=== PATIENT | female | born 1955 | race Caucasian/White ===

== ENCOUNTER → 2017-03-07 | Outpatient (CLI) | payer BC ==
--- NOTE | 2017-03-07 16:19 | CT ---
EXAMINATION TYPE: CT sinus wo con DATE OF EXAM: 03/07/2017 4:13 PM COMPARISON: NONE HISTORY: sinus headaches and congestion CT DLP: 622.3 mGycm CONTRAST: 0 mL of Omnipaque 300 The paranasal sinuses are examined in the axial plane at 2 mm thick sections. Reconstructed images i n the coronal plane were obtained. There is dental amalgam scatter artifact The maxillary sinuses are clear. The ethmoid air cells are clear. The sphenoid sinuses are clear. The frontal sinuses are clear. The septum is evaluated. There is septal deviation to the left. The ostiomeatal units are patent. IMPRESSIONS: 1. Normal paranasal sinus study
== END | disposition home or self-care (01) ==
LOC: RADCTMAIN 15:41
PROVIDERS: ATTEND Otolaryngology
DX: J32.9 Chronic sinusitis, unspecified (principal)
CPT/HCPCS: 70486

== ENCOUNTER → 2018-10-13 | Outpatient (CLI) | payer BC ==
--- NOTE | 2018-10-18 14:42 | P.ARTDOP ---
Arterial Doppler LOWER EXTREMITY ARTERIAL DOPPLER: DATE OF SERVICE: 10/13/2018 Reason for study: Leg cramping. Doppler waveforms: Multiphasic bilaterally throughout. Pulse volume recording: Normal configuration. Pressure gradients: None. Ankle-brachial indices: Greater than 1 bilaterally. Toe pressures: [] on the right, [] on the left Impression: Normal study.
== END ==
LOC: RADUSWWP 14:10
PROVIDERS: ATTEND Family Medicine
DX: I73.9 Peripheral vascular disease, unspecified (principal)
CPT/HCPCS: 93923

== ENCOUNTER → 2019-04-06 | Outpatient (CLI) | payer OTHER ==
--- NOTE | 2019-04-06 12:34 | XR ---
EXAM TYPE: LUMBAR SPINE X RAY SERIES COMPARISON: NONE HISTORY: Pain TECHNIQUE: 4 views are submitted. FINDINGS: Alignment is anatomic. The pedicles are intact. The transverse processes are intact. There is mult ilevel mild degenerative disc disease with advanced facet arthropathy L4-5 and L5-S1. Moderate degene rative disc disease L4-5 and severe changes L5-S1. Grade 1 anterolisthesis L4 on L5. IMPRESSION: 1. Multilevel degenerative disc disease with most marked findings at L4-5 and L5-S1. Grade 1 anteroli sthesis L4 on L5.
== END ==
LOC: RADXRMAIN 12:12
PROVIDERS: ATTEND Emergency Medicine
DX: M43.16 Spondylolisthesis, lumbar region (principal); M51.36 Other intervertebral disc degeneration, lumbar region; M51.37 Other intervertebral disc degeneration, lumbosacral region
CPT/HCPCS: 72100

== ENCOUNTER → 2020-08-13 | Outpatient (CLI) | payer BC ==
--- NOTE | 2020-08-14 13:37 | BD ---
EXAMINATION TYPE: Axial Bone Density DATE OF EXAM: 08/13/2020 COMPARISON: NONE CLINICAL HISTORY: Height: 5 FT 3 IN Weight: 137 FRAX RISK QUESTIONS: Alcohol (3 or more units per day): NO Family History (Parent hip fracture): NO Glucocorticoids (More than 3mos): NO (Ex: prednisone, prednisolone, methylprednisolone, dexamethasone, and hydrocortisone). History of Fracture in Adulthood: NO Secondary Osteoporosis: 1. Type 1 Diabetes: NO 2. Hyperthyroidism: NO 3. Menopause before 45: NO 4. Malnutrition: NO 5. Chronic liver disease: NO Rheumatoid Arthritis: NO Current Tobacco Use: NO RISK FACTORS HISTORY OF: Family History of Osteoporosis: YES Active: SOMEWHAT Postmenopausal woman: AGE 48 MEDICATIONS: Additional Medications: ATTENOLOL, CYMBICORT,SINGULAIR ,PAIN MEDS Additional History: EXAM MEASUREMENTS: Bone mineral densitometry was performed using the [employer] System. Bone mineral density as measured about the Lumbar spine is: ----- L1-L4(G/cm2): 1.179 T Score Values are as follows: ----- L2: 0.0 ----- L3: -0.4 ----- L4: 0.3 ----- L1-L4: 0.0 BASELINE Bone mineral density about the R hip (g/cm2): 0.871 Bone mineral density about the L hip (g/cm2): 0.829 T Score values are as follows: -----R Neck: -1.2 -----L Neck: -1.5 -----R Total: -0.7 -----L Total: -1.2 BASELINE IMPRESSION: Osteopenia of the left proximal femur. NOTE: T-SCORE=SD OF THE YOUNG ADULT MEAN.
--- NOTE | 2020-08-14 14:47 | MM ---
Reason for exam: screening (asymptomatic). Last mammogram was performed 2 years and 9 months ago. History: Patient is postmenopausal. Family history of breast cancer in mother at age 50. Benign cyst aspiration of the left breast. 2 benign cyst aspirations of the right breast. Benign excisional biopsy of the left breast. Physical Findings: A clinical breast exam by your physician is recommended on an annual basis and results should be correlated with mammographic findings. MG 3D Screening Mammo W/Cad Bilateral CC and MLO view(s) were taken. Prior study comparison: November 07, 2017, bilateral MG screening mammo w CAD. July 07, 2016, bilateral MG screening mammo w CAD. The breast tissue is extremely dense which could obscure a lesion on mammography. Stable benign calcifications. There is no discrete abnormality. No significant changes when compared with prior studies. ASSESSMENT: Benign, BI-RAD 2 RECOMMENDATION: Routine screening mammogram of both breasts in 1 year.
== END | disposition home or self-care (01) ==
LOC: RADMAMWWP 15:10
PROVIDERS: ATTEND Family Medicine
DX: Z12.31 Encounter for screening mammogram for malignant neoplasm of breast (principal); M85.852 Other specified disorders of bone density and structure, left thigh; Z80.3 Family history of malignant neoplasm of breast
CPT/HCPCS: 77063; 77067; 77080

== ENCOUNTER → 2021-12-22 | Outpatient (CLI) | payer BC ==
--- NOTE | 2021-12-23 10:01 | MM ---
Reason for exam: screening (asymptomatic). Last mammogram was performed 1 year and 4 months ago. History: Patient is postmenopausal. Family history of breast cancer in mother at age 50. Benign cyst aspiration of the left breast. 2 benign cyst aspirations of the right breast. Benign excisional biopsy of the left breast. Physical Findings: A clinical breast exam by your physician is recommended on an annual basis and results should be correlated with mammographic findings. MG 3D Screening Mammo W/Cad Bilateral CC and MLO view(s) were taken. Prior study comparison: August 13, 2020, bilateral MG 3d screening mammo w/cad. November 07, 2017, bilateral MG screening mammo w CAD. The breast tissue is heterogeneously dense. This may lower the sensitivity of mammography. Nodular density upper outer right breast. This finding is changed when compared with previous exams. ASSESSMENT: Incomplete: need additional imaging evaluation, BI-RAD 0 RECOMMENDATION: Special view mammogram and ultrasound of the right breast. [facility] will attempt to contact patient to return for supplemental views and ultrasound.
== END | disposition home or self-care (01) ==
LOC: RADMAMWWP 16:20
PROVIDERS: ATTEND Family Medicine
DX: Z12.31 Encounter for screening mammogram for malignant neoplasm of breast (principal)
CPT/HCPCS: 77063; 77067

== ENCOUNTER → 2022-01-01 | Outpatient (CLI) | payer BC ==
--- NOTE | 2022-01-01 13:23 | US ---
EXAMINATION TYPE: US bladder DATE OF EXAM: 01/01/2022 COMPARISON: NONE CLINICAL HISTORY: N39.492. Prolapsed bladder EXAM MEASUREMENTS: Post Void Residual Volume: 31.61 mL Color Doppler performed to assess ureteral jets. Bilateral Jets seen: Yes Normal Post Void Residual (less than 50ml): Yes No Abnormalities seen. IMPRESSION: No distinct abnormality appreciated.
== END | disposition home or self-care (01) ==
LOC: RADUSWWP 12:54
PROVIDERS: ATTEND Family Medicine
DX: N39.492 Postural (urinary) incontinence (principal)
CPT/HCPCS: 76857

== ENCOUNTER → 2022-01-07 | Outpatient (CLI) | payer BC ==
--- NOTE | 2022-01-07 10:06 | MM ---
Reason for exam: additional evaluation requested from abnormal screening. Last mammogram was performed 1 month ago. History: Patient is postmenopausal. Family history of breast cancer in mother at age 50. Benign cyst aspiration of the left breast. 2 benign cyst aspirations of the right breast. Benign excisional biopsy of the left breast. Physical Findings: Nurse did not find any significant physical abnormalities on exam. MG Work Up Mamm w CAD RT Spot compression CC and spot compression MLO view(s) were taken of the right breast. Prior study comparison: December 22, 2021, bilateral MG 3d screening mammo w/cad. August 13, 2020, bilateral MG 3d screening mammo w/cad. The breast tissue is heterogeneously dense. This may lower the sensitivity of mammography. Oval nodule anterior depth lower outer quadrant measuring 1.1cm persists on spot views. These results were verbally communicated with the patient and result sheet given to the patient on 01/07/22. ASSESSMENT: Incomplete: need additional imaging evaluation, BI-RAD 0 RECOMMENDATION: Ultrasound of the right breast.
--- NOTE | 2022-01-07 10:08 | USB ---
Reason for exam: additional evaluation requested from abnormal screening. History: Patient is postmenopausal. Family history of breast cancer in mother at age 50. Benign cyst aspiration of the left breast. 2 benign cyst aspirations of the right breast. Benign excisional biopsy of the left breast. US Breast Workup Limited RT Right limited breast ultrasound including focal area of concern, retroareolar and axilla demonstrates a 0.6 x 0.4 x 0.9cm cyst cluster at 8 o'clock, likely mammographic finding. 6 month follow up recommended. These results were verbally communicated with the patient and result sheet given to the patient on 01/07/22. ASSESSMENT: Probably benign, BI-RAD 3 RECOMMENDATION: Follow-up diagnostic mammogram and ultrasound of the right breast in 6 months.
== END | disposition home or self-care (01) ==
LOC: RADMAMWWP 07:36
PROVIDERS: ATTEND Family Medicine
DX: R92.8 Other abnormal and inconclusive findings on diagnostic imaging of breast (principal)
CPT/HCPCS: 77065

== ENCOUNTER → 2022-02-18 | Outpatient (CLI) | payer BC ==
--- NOTE | 2022-02-18 15:27 | ECHOS ---
STRESS ECHOCARDIOGRAM INDICATIONS: Chest pain. BASELINE HEART RATE: 54 BASELINE BLOOD PRESSURE: 125/67 MAXIMUM HEART RATE: 163 MAXIMUM BLOOD PRESSURE: 164/67 85% MPHR: 129 100% MPHR: 152 METS: 5.1 MAXIMUM STAGE REACHED: III TOTAL EXERCISE TIME: 7 ,min CLINICAL INFORMATION: Baseline EKG shows sinus rhythm, normal axis, normal intervals. Patient exercised on Hero protocol for a total of 7 minutes, achieving 8 METS, 85% of predicted maximal heart rate, without chest pain. At peak exercise there was 1.[address]-segment depression noted in the inferolateral leads. Baseline echo shows normal left ventricular size, wall motion and systolic function. Post exercise there is normal hyperdynamic response of all segments of myocardium noted. CONCLUSIONS: 1. Above-average exercise tolerance. 2. Abnormal stress test by EKG criteria. 3. No evidence of exercise-induced wall motion abnormalities at peak exercise. MMHAIRL / IJN: [id number] /
== END | disposition home or self-care (01) ==
LOC: RADNMMAIN 09:09
PROVIDERS: ATTEND Family Medicine
DX: R07.9 Chest pain, unspecified (principal); R94.39 Abnormal result of other cardiovascular function study
CPT/HCPCS: 93351

== ENCOUNTER 2022-07-23 08:52 | Day surgery (SDC) | payer BC ==
[2022-07-22 08:47] VITALS: BMI 23.0
[~2022-07-23 08:52] MED LIST: Pre Op ABX Message 1 EACH MISC MISCELLANE ONE
[2022-07-23 09:23] VITALS: TEMP 97.2
[2022-07-23] MEDS ORDERED: ONDANSETRON 4 MG/2 ML VIAL ONE (09:38)
[2022-07-23] MEDS ORDERED: fentaNYL (PF) 50 MCG/ML 2 ML AMP IVP ONE (09:44)
[2022-07-23] MEDS ORDERED: MIDAZOLAM 2 MG/2 ML VIAL IVP ONE (09:44)
[2022-07-23] MEDS ORDERED: LACTATED RINGERS 1,000 ML IV ONE (09:58)
[2022-07-23] MEDS ORDERED: DEXAMETHASONE SOD PHOSPHATE 4 MG/ML 1 ML VIAL IVP ONE (09:59)
--- NOTE | 2022-07-23 10:04 | P.ANPRN ---
Procedure Note - Anesthesia - Nerve Block Performed Right Adductor Canal Time Out Performed: Yes (:) Date of Procedure: 07/23/22 Procedure Start Time: Procedure Stop Time: Location of Patient: PreOp Indication: Acute Post-Operative Pain, Requested by Surgeon (Dr Daniel) Sedation Type: Sedate with meaningful contact maintained Preparation: Sterile Prep Position: Supine Catheter: None Needle Types: Pajunk Needle Gauge: 21 Ultrasound used to visualize needle placement: Yes Ultrasound used to observe medication spread: Yes Injectate: 0.5% Ropivacaine (see comment for volume) (15cc +5cc PF Normal saline) Blood Aspirated: No Pain Paresthesia on Injection Noted: No Resistance on Injection: Normal Image Stored and Saved: Yes Events: Uneventful and Well Tolerated
--- NOTE | 2022-07-23 10:05 | P.ANPRN ---
Procedure Note - Anesthesia - Nerve Block Performed Right Popliteal Time Out Performed: Yes Date of Procedure: 07/23/22 Procedure Start Time: 09:50 Procedure Stop Time: :56 Location of Patient: PreOp Indication: Acute Post-Operative Pain, Requested by Surgeon (Dr Daniel) Sedation Type: Sedate with meaningful contact maintained Preparation: Sterile Prep Position: Left Lateral Catheter: None Needle Types: Pajunk Needle Gauge: 21 Ultrasound used to visualize needle placement: Yes Ultrasound used to observe medication spread: Yes Injectate: 0.5% Ropivacaine (see comment for volume) (15cc +5cc PF Normal saline) Blood Aspirated: No Pain Paresthesia on Injection Noted: No Resistance on Injection: Normal Image Stored and Saved: Yes Events: Uneventful and Well Tolerated
[2022-07-23] MEDS ORDERED: ePHEDrine 50 MG/ML 1 ML VIAL ONE (10:24)
[2022-07-23] MEDS ORDERED: MIDAZOLAM 2 MG/2 ML VIAL ONE (10:24)
[2022-07-23] MEDS ORDERED: SODIUM CHLORIDE 0.9% (PF) 10 ML VIAL ONE (10:24)
[2022-07-23] MEDS ORDERED: SUCCINYLCHOLINE CHLORIDE 200 MG/10 ML VIAL IV ONE (10:24)
[2022-07-23] MEDS ORDERED: GLYCOPYRROLATE 0.2 MG/ML 2 ML VIAL ONE (10:24)
[2022-07-23] MEDS ORDERED: fentaNYL (PF) 50 MCG/ML 2 ML AMP ONE (10:24)
[2022-07-23] MEDS ORDERED: ROPIVACAINE 5 MG/ML 30 ML VIAL ONE (10:24)
[2022-07-23] MEDS ORDERED: LIDOCAINE 2% INJ 20 MG/ML (2 ML VIAL) ONE (10:24)
[2022-07-23] MEDS ORDERED: ceFAZolin 1,000 MG in SODIUM CHLORIDE 0.9% 1,000 ML IRRIGATION ONE (10:29)
[2022-07-23] MEDS ORDERED: SODIUM CHLORIDE 0.9% 100 ML with ceFAZolin 2,000 MG IV ONE ×2 (10:29)
[2022-07-23] MEDS ORDERED: HYDROmorphone 0.5 MG/0.5 ML SYRINGE IVP ONE (12:30)
--- NOTE | 2022-07-23 13:42 | P.OP ---
Date of Procedure: 07/23/22 Preoperative Diagnosis: Hallux valgus right foot Postoperative Diagnosis: Same Procedure(s) Performed: Modified Lapidus bunionectomy right foot Implants: Lapiplasty plates and screws 3.5 mm partially threaded cannulated screw Anesthesia: BESSIE Surgeon: Alexander Daniel Estimated Blood Loss (ml): 3 Pathology: none sent Condition: stable Disposition: PACU Description of Procedure: Prior to the patient being brought to the operating room, anesthesia administe red a nerve block on the right lower extremity. The patient was brought into the operative room and placed on table in the supine position. Timeout was taken to confirm correct patient identifiers, correct procedure, and correct site of surgery. When all staff in the room were in agreement with the timeout the patient was induced placed under general anesthesia. A well-padded tourniquet was placed on the ankle. Attention was directed over the medial aspect of the first metatarsal phalangeal joint where a linear incision was made between the neurovascular structures. The incision was deepened down to the subcutaneous layer careful to identify, avoid, and retract any neurovascular structures and cauterize any bleeding vessels. Dissection was then carried down to the joint capsule where 2 semi- elliptical converging incisions were made along the medial aspect of the first metatarsal phalangeal joint capsule. The interposing piece of capsule was removed from the surgical field and the capsule reflected from medial aspect of first metatarsal head. The sesamoid apparatus was distracted plantarly in the lateral sesamoid collateral ligament was transected and a lateral capsulotomy performed. Then attention was directed to the dorsal aspect of the foot over the first tarsometatarsal joint. A linear incision was made medial to the extensor hallucis longus tendon with the center of the incision over the first tarsometatarsal joint. The incision was deepened down to the subcutaneous tissue careful to identify, avoid, and retract any neurovascular structures and cauterize any bleeding vessels. Blunt dissection was then carried down to the joint capsule which was incised medial to the extensor hallucis longus tendon area and subperiosteal dissection was performed to reflect the soft tissue away from the joint. An osteotome was used to free the soft tissue from around the joint surfaces to help mobilize the frontal plane correction. A guidewire and placed through the base of the first metatarsal from medial to lateral. This is was used as a joystick for the frontal plane rotation correction. The small fulcrum was placed at the base of the first metatarsal, the joint seeker was also placed at the first tarsometatarsal joint as far lateral as possible. And then the reduction clamp was applied around the first metatarsal and lateral to the second metatarsal. While holding the frontal plane correction the reduction clamp was reduced to close the intermetatarsal angle. Once the amount of correction was acceptable under fluoroscopy, a wire was placed through the reduction clamp to lock the correction in place. The cutting guide was then placed over the joint seeker then held in place with 2 straight pins and then one angled pin so it did not slide dorsally. The bone cuts were then made through the cutting jig. Cutting jig was removed, leaving the [address], as was the fulcrum. The compression/distraction device was then placed over the remaining wires and then opened to allow access to the cut surfaces of bone. Both cut surfaces were removed fully with no remaining pieces. The wound was then irrigated thoroughly with antibiotic saline. Then a 2.0 mm drill bit was used to aggressively fenestrate the conjoining surfaces of the arthrodesis site. The fulcrum was reinserted at the lateral base of the first metatarsal . Then the distraction device was reversed for compression and while holding the great toe dorsiflexed the arthrodesis site was compressed fully. Fluoroscopy was used to check the alignment which showed full compression at the arthrodesis site with maintained correction of the intermetatarsal angle and anatomic alignment of the sesamoids. Threaded olive wire was then inserted across the arthrodesis site for temporary fixation. The medial plate was applied first it was aligned under fluoroscopy and then temporarily fixated. The 2 screw holes closest to the arthrodesis site were filled with the compression/locking screws until they were fully seated. The outer 2 holes were done with straight locking screws. The dorsal straight plate was then positioned under fluoroscopy until correct and then temporarily fixated. The 2 holes closest to the arthrodesis site were filled with the compression/locking screw and the outer holes with the straight locking screws. All extraneous instrumentation was removed and then a final fluoroscopic imaging showed full correction of the intermetatarsal angle, proper placement of hardware, no gapping at the arthrodesis, and the sesamoids anatomically aligned. All wounds were thoroughly irrigated with antibiotic saline. Stress testing of the intercuneiform joint was then performed at this point under live fluoroscopy. There was instability noted therefore the decision was made to put inner cuneiform compression screw. A guidewire for the cannulated screw was then placed on the medial side of the cuneiform avoiding the hardware from the a rthrodesis advanced and that into the intermediate cuneiform. Fluoroscopy confirmed the proper position of the wire. A partially-threaded cannulated screw was inserted across guidewires and advanced until the head engaged the medial cortex of the cuneiform. Once was fully engaged and compressed, the stress testing was repeated and there was no longer instability noted. Capsular closure was done with 0 Vicryl in both incisions. All incisions were closed subcutaneously with 4-0 Monocryl. The large dorsal and medial incisions were closed with 3-0 Stratafix in a running subcuticular manner for skin. Dermal glue was applied to all the incisions and allowed to dry. Steri-Strips are then placed across incision and covered with an Arthrex jumpstart dressing. A bulky dry dressings applied to foot. The tourniquet was released capillary refill return to all digits on the foot. The patient then placed in a well-padded, well molded posterior mold/sugar tong splint. The foot was held in neutral position as it dried. Once dry, the patient was reversed from general anesthesia and taken recovery with vital signs stable.
[2022-07-23 14:00] VITALS: BP 132/50; PULSE 66; RESP 16
== END 2022-07-23 14:09 | disposition home or self-care (01) ==
LOC: OR 08:52
PROVIDERS: ATTEND Podiatrist
DX: M20.11 Hallux valgus (acquired), right foot (principal); G89.18 Other acute postprocedural pain; G43.909 Migraine, unspecified, not intractable, without status migrainosus; M19.90 Unspecified osteoarthritis, unspecified site; Z86.711 Personal history of pulmonary embolism; Z79.51 Long term (current) use of inhaled steroids; Z79.899 Other long term (current) drug therapy; Z87.891 Personal history of nicotine dependence
CPT/HCPCS: 64447; 64445; 76942; 28292; C1713; J2250; J0330; J1100; J2405; J0690; J3010; J2795; J1170; J2001

== ENCOUNTER → 2023-03-02 | Outpatient (CLI) | payer BC ==
--- NOTE | 2023-03-02 09:06 | MM ---
Reason for Exam: Additional evaluation requested from prior study. Last mammogram was performed 1 year(s) and 3 month(s) ago. Patient History: Menarche at age 10. First Full-Term at age 17. Left ovary removed at age 56. Right ovary removed at age 56. Hysterectomy at age 56. Postmenopausal. Patient has history of breast feeding. Benign Cyst Aspiration on the right side. Benign Cyst Aspiration on the right side. Benign Cyst Aspiration on the left side. Benign Excisional Biopsy on the left side. Niece had breast cancer under age 50. Mother had breast cancer, age 50. Risk Values: Deanna 5 year model risk: 3.8%. NCI Lifetime model risk: 11.3%. Prior Study Comparison: 07/07/2016 Bilateral Screening Mammogram, [facility]. 11/07/2017 Bilateral Screening Mammogram, [facility]. 08/13/2020 Bilateral Screening Mammogram, [facility]. 12/22/2021 Bilateral Screening Mammogram, [facility]. 01/07/2022 Right Diagnostic Mammogram, [facility]. 09/08/2022 Right MG 3D diag mammo w/cad RT, [facility]. Tissue Density: The breast tissue is heterogeneously dense. This may lower the sensitivity of mammography. Findings: Analyzed By CAD. There are few scattered benign-appearing punctate calcifications throughout the bilateral breasts redemonstrated. No new suspicious group of microcalcification or focal mass in either breast. Overall Assessment: Benign, BI-RAD 2 Management: Screening Mammogram of both breasts in 1 year. Some advise bilateral breast ultrasound surveillance in patients with background dense tissue. Results were given to the patient verbally at the time of exam. Electronically signed and approved by: Serg Hartman M.D.
== END | disposition home or self-care (01) ==
LOC: RADMAMWWP 08:25
PROVIDERS: ATTEND Family Medicine
DX: R92.8 Other abnormal and inconclusive findings on diagnostic imaging of breast (principal); Z78.0 Asymptomatic menopausal state; Z80.3 Family history of malignant neoplasm of breast
CPT/HCPCS: 77062; 77066

== ENCOUNTER → 2024-03-08 | Outpatient (CLI) | payer MEDICARE ==
--- NOTE | 2024-03-13 13:54 | MM ---
Reason for Exam: Screening (asymptomatic). Last screening mammogram was performed 12 month(s) ago. Patient History: Menarche at age 10. First Full-Term at age 17. Left ovary removed at age 56. Right ovary removed at age 56. Hysterectomy at age 56. Postmenopausal. Patient has history of breast feeding. Benign Cyst Aspiration on the right side. Benign Cyst Aspiration on the right side. Benign Cyst Aspiration on the left side. Benign Excisional Biopsy on the left side. Niece had breast cancer under age 50. Mother had breast cancer, age 50. Risk Values: Deanna 5 year model risk: 3.8%. NCI Lifetime model risk: 10.8%. Prior Study Comparison: 01/07/2022 Right Diagnostic Mammogram, [facility]. 09/08/2022 Right MG 3D diag mammo w/cad RT, [facility]. 03/02/2023 Bilateral MG 3D diag mammo w/cad [facility], [facility]. Tissue Density: The breasts are heterogeneously dense, which may obscure small masses. Findings: Analyzed By CAD. Right breast: There is no suspicious group of microcalcifications or new suspicious mass. Left breast: There is no suspicious group of microcalcifications or new suspicious mass. Overall Assessment: Negative, BI-RAD 1 Management: Screening Mammogram of both breasts in [address] [facility] will attempt to contact patient to return for supplemental views and ultrasound if indicated. Patient should continue monthly self-breast exams. A clinical breast exam by your physician is recommended on an annual basis. This exam should not preclude additional follow-up of suspicious palpable abnormalities. Note on Deanna scores and lifetime risk: 1. A Deanna score greater than 3% is considered moderate risk. If this is the case, consider specialist referral to assess eligibility for a risk reducing agent. 2. If overall lifetime risk for the development of breast cancer is 20% or higher, the patient may qualify for future screening with alternating mammogram and breast MRI. Electronically signed and approved by: Syed Dawson DO
== END | disposition home or self-care (01) ==
LOC: RADMAMWWP 12:41
PROVIDERS: ATTEND Family Medicine
DX: Z12.31 Encounter for screening mammogram for malignant neoplasm of breast (principal); Z78.0 Asymptomatic menopausal state; Z80.3 Family history of malignant neoplasm of breast
CPT/HCPCS: 77063; 77067

== ENCOUNTER → 2025-03-28 | Outpatient (CLI) | payer MEDICARE ==
--- NOTE | 2025-03-28 15:14 | MM ---
Reason for Exam: Screening (asymptomatic). Last mammogram was performed 1 year(s) and 1 month(s) ago. Patient History: Menarche at age 10. First Full-Term at age 17. Left ovary removed at age 56. Right ovary removed at age 56. Hysterectomy at age 56. Postmenopausal. Patient has history of breast feeding. Benign Cyst Aspiration on the right side. Benign Cyst Aspiration on the right side. Benign Cyst Aspiration on the left side. Benign Excisional Biopsy on the left side. Niece had breast cancer under age 50. Mother had breast cancer, age 50. Risk Values: Deanna 5 year model risk: 3.8%. NCI Lifetime model risk: 10.3%. Prior Study Comparison: 09/08/2022 Right MG 3D diag mammo w/cad RT, [facility]. 03/02/2023 Bilateral MG 3D diag mammo w/cad [facility], [facility]. 03/08/2024 Bilateral MG 3D screening mammo w/cad, [facility]. Tissue Density: The breasts are heterogeneously dense, which may obscure small masses. Findings: Analyzed By CAD. Benign appearing vascular calcification bilaterally is redemonstrated. There is no suspicious group of microcalcifications or new suspicious mass in either breast. Overall Assessment: Benign, BI-RAD 2 Management: Screening Mammogram of both breasts in 1 year. Some advise annual bilateral breast ultrasound surveillance in patients with background dense tissue. Patient should continue monthly self-breast exams. A clinical breast exam by your physician is recommended on an annual basis. This exam should not preclude additional follow-up of suspicious palpable abnormalities. Note on Deanna scores and lifetime risk: 1. A Deanna score greater than 3% is considered moderate risk. If this is the case, consider specialist referral to assess eligibility for a risk reducing agent. 2. If overall lifetime risk for the development of breast cancer is 20% or higher, the patient may qualify for future screening with alternating mammogram and breast MRI. [facility], , 03/28/2025 3:12 PM. Electronically signed and approved by: Serg Hartman M.D.
--- NOTE | 2025-03-28 15:20 | BD ---
EXAMINATION TYPE: Axial Bone Density DATE OF EXAM: 03/28/2025 CLINICAL HISTORY: 69 years old Female. ICD-10 CODE: M81.0 AGE-RELATED OSTEOPOROSIS W/ , Additional H istory: Height: 62 Weight: 145 FRAX RISK QUESTIONS: Secondary Osteoporosis: RISK FACTORS HISTORY OF: MEDICATIONS: EXAM MEASUREMENTS: Bone mineral densitometry was performed using the [employer] System. Bone mineral density as measured about the Lumbar spine is: ----- L1-L4(G/cm2): 1.215 T Score Values are as follows: ----- L1: 0.0 ----- L2: -0.1 ----- L3: 0.6 ----- L4: 0.5 ----- L1-L4: 0.3 Z Score Values are as follows: ----- L1: 1.7 ----- L2: 1.6 ----- L3: 2.2 ----- L4: 2.2 ----- L1-L4: 2.0 Bone mineral density has: Increased 2.7% since study of: 09-08-22 Bone mineral density about the R hip (g/cm2): 0.858 Bone mineral density about the L hip (g/cm2): 0.902 T Score values are as follows: -----R Neck: -1.4 -----L Neck: -1.1 -----R Total: -1.2 -----L Total: -0.8 Z Score values are as follows: -----R Neck: 0.3 -----L Neck: 0.6 -----R Total: 0.4 -----L Total: 0.7 Bone mineral density has: Increased 1.3% since study of: 09-08-22 FRAX%s: The graph provided illustrates a 10.3% chance for a major osteoporotic fx and a 1.6% chance f or the hips probability for fx in 10 years time. IMPRESSION: Osteopenia (T Score between -2.5 and -1) is redemonstrated. There is slightly increased risk of fracture and the patient may be considered for treatment. Re-Screen 2-5 years. NOTE: T-SCORE=SD OF THE YOUNG ADULT MEAN. [facility], , 03/28/2025 3:18 PM
== END | disposition home or self-care (01) ==
LOC: RADMAMWWP 14:45
PROVIDERS: ATTEND Family Medicine
DX: Z12.31 Encounter for screening mammogram for malignant neoplasm of breast (principal); M81.0 Age-related osteoporosis without current pathological fracture; M85.89 Other specified disorders of bone density and structure, multiple sites; R92.333 Mammographic heterogeneous density, bilateral breasts; Z78.0 Asymptomatic menopausal state; Z80.3 Family history of malignant neoplasm of breast
CPT/HCPCS: 77063; 77067; 77080